=== PATIENT | male | born 1935 | race Caucasian/White ===

== ENCOUNTER → 2018-01-04 05:00 | Outpatient (REF) | payer MEDICARE, OTHER, MEDICAID, SELFPAY ==
[2018-01-04 08:07] LABS: Anion Gap 5 (5-15); BUN 18 mg/dL (7-18); BUN/Creat Ratio 22.1 RATIO (10-20); Calcium,Total 8.5 mg/dL (8.5-10.1); Chloride 104 mmol/L (98-107); Creatinine, Serum 0.81 mg/dL (0.70-1.30); EST Glomerular Filtration Rate 97 mL/min (>60); Est Glom Filt Rate - Afr Amer 117 mL/min (>60); Glucose 92 mg/dL (74-106); Potassium 3.9 mmol/L (3.5-5.1); Sodium Level 140 mmol/L (136-145)
[2018-01-04 08:26] LABS: Hemoglobin A1c 6.8 % (4.2-6.3)
== END ==
LOC: OLS.WHLCAR 05:00
PROVIDERS: Visit Provider Family Medicine
DX: E11.9 Type 2 diabetes mellitus without complications (principal); I10 Essential (primary) hypertension; E78.5 Hyperlipidemia, unspecified
CPT/HCPCS: 36415; 80048; 83036

== ENCOUNTER → 2018-04-11 13:00 | Outpatient (REF) | payer MEDICARE, OTHER, MEDICAID, SELFPAY | LOC: OLS.WHLCAR 13:00 | PROVIDERS: Visit Provider Family Medicine | DX: J18.9 Pneumonia, unspecified organism (principal) | CPT/HCPCS: 87449 ==

== ENCOUNTER → 2018-10-26 05:00 | Outpatient (REF) | payer MEDICARE, OTHER, MEDICAID, SELFPAY ==
[2018-10-26 07:52] LABS: Hematocrit 35.7 % (40-54); Hemoglobin 11.9 g/dl (13.0-16.5); Mean Corp Hgb Conc 33.3 g/gl (32-36); Mean Corpuscular Hgb 31.5 pg (27.0-32.0); Mean Corpuscular Volume 94.4 fL (80-94); Mean Platelet Vol. 8.7 fl (6.2-12.0); Platelet Count 245 K/mm3 (150-450); RBC Distribution Width CV 15.2 % (11.6-14.6); RBC Distribution Width SD 50.3 fl (35.1-43.9); Red Blood Count 3.78 M/mm3 (4.6-6.2); White Blood Count 9.3 K/mm3 (4.4-11.0)
[2018-10-26 08:01] LABS: Scan Indicated on CBC? Y/N NO
[2018-10-26 08:02] LABS: Anion Gap 8 (5-15); BUN 21 mg/dL (7-18); BUN/Creat Ratio 29.6 RATIO (10-20); Calcium,Total 8.5 mg/dL (8.5-10.1); Chloride 95 mmol/L (98-107); Creatinine, Serum 0.71 mg/dL (0.70-1.30); EST Glomerular Filtration Rate 113 mL/min (>60); Est Glom Filt Rate - Afr Amer 137 mL/min (>60); Glucose 117 mg/dL (74-106); Potassium 3.6 mmol/L (3.5-5.1); Sodium Level 136 mmol/L (136-145)
== END ==
LOC: OLS.WHLCAR 05:00
PROVIDERS: Visit Provider Family Medicine
DX: I10 Essential (primary) hypertension (principal)
CPT/HCPCS: 36415; 80048; 85027

== ENCOUNTER → 2019-01-24 05:00 | Outpatient (REF) | payer MEDICARE, OTHER, MEDICAID, SELFPAY ==
[2019-01-24 07:50] LABS: Hematocrit 37.5 % (40-54); Hemoglobin 12.2 g/dl (13.0-16.5); Mean Corp Hgb Conc 32.5 g/gl (32-36); Mean Corpuscular Volume 95.2 fL (80-94); Mean Platelet Vol. 8.8 fl (6.2-12.0); Platelet Count 262 K/mm3 (150-450); RBC Distribution Width CV 14.1 % (11.6-14.6); RBC Distribution Width SD 48.6 fl (35.1-43.9); Red Blood Count 3.94 M/mm3 (4.6-6.2); White Blood Count 8.5 K/mm3 (4.4-11.0)
[2019-01-24 07:52] LABS: Scan Indicated on CBC? Y/N NO
[2019-01-24 08:14] LABS: Hemoglobin A1c 6.4 % (4.2-6.3)
[2019-01-24 08:17] LABS: Anion Gap 8 (5-15); BUN 11 mg/dL (7-18); BUN/Creat Ratio 16.8 RATIO (10-20); Calcium,Total 8.4 mg/dL (8.5-10.1); Chloride 97 mmol/L (98-107); Creatinine, Serum 0.66 mg/dL (0.70-1.30); EST Glomerular Filtration Rate 124 mL/min (>60); Est Glom Filt Rate - Afr Amer 150 mL/min (>60); Glucose 124 mg/dL (74-106); Potassium 2.6 mmol/L (3.5-5.1); Sodium Level 142 mmol/L (136-145)
== END ==
LOC: OLS.WHLCAR 05:00
PROVIDERS: Visit Provider Family Medicine
DX: E11.9 Type 2 diabetes mellitus without complications (principal); I10 Essential (primary) hypertension; E78.5 Hyperlipidemia, unspecified
CPT/HCPCS: 36415; 80048; 83036; 85027

== ENCOUNTER → 2019-01-31 05:00 | Outpatient (REF) | payer MEDICARE, OTHER, MEDICAID, SELFPAY ==
[2019-01-31 08:36] LABS: Anion Gap 7 (5-15); Chloride 100 mmol/L (98-107); Potassium 5.1 mmol/L (3.5-5.1); Sodium Level 139 mmol/L (136-145)
== END ==
LOC: OLS.WHLCAR 05:00
PROVIDERS: Visit Provider Family Medicine
DX: I10 Essential (primary) hypertension (principal); E78.5 Hyperlipidemia, unspecified
CPT/HCPCS: 36415; 80051

== ENCOUNTER → 2019-03-12 06:30 | Outpatient (REF) | payer MEDICARE, OTHER, MEDICAID, SELFPAY | LOC: OLS.WHLCAR 06:30 | PROVIDERS: Visit Provider Family Medicine | DX: R19.7 Diarrhea, unspecified (principal) | CPT/HCPCS: 87493 ==

== ENCOUNTER → 2019-06-12 07:00 | Outpatient (REF) | payer MEDICARE, OTHER, MEDICAID, SELFPAY ==
[2019-06-12 09:05] LABS: Anion Gap 9 (5-15); BUN 16 mg/dL (7-18); BUN/Creat Ratio 23.1 RATIO (10-20); Calcium,Total 8.4 mg/dL (8.5-10.1); Chloride 97 mmol/L (98-107); Creatinine, Serum 0.69 mg/dL (0.70-1.30); EST Glomerular Filtration Rate 116 mL/min (>60); Est Glom Filt Rate - Afr Amer 141 mL/min (>60); Glucose 117 mg/dL (74-106); Potassium 2.8 mmol/L (3.5-5.1); Sodium Level 139 mmol/L (136-145)
== END ==
LOC: OLS.WHLCAR 07:00
PROVIDERS: Visit Provider Family Medicine
DX: I69.954 Hemiplegia and hemiparesis following unspecified cerebrovascular disease affecting left non-dominant side (principal); I67.9 Cerebrovascular disease, unspecified; R53.81 Other malaise; E11.9 Type 2 diabetes mellitus without complications; J06.9 Acute upper respiratory infection, unspecified
CPT/HCPCS: 36415; 80048

== ENCOUNTER → 2019-07-05 05:00 | Outpatient (REF) | payer MEDICARE, OTHER, MEDICAID, SELFPAY ==
[2019-06-22 09:57] VITALS: BMI 29.7
[2019-07-05 06:11] LABS: Hematocrit 41.4 % (40-54); Hemoglobin 12.8 g/dL (13.0-16.5); Mean Corp Hgb Conc 30.9 g/dL (32-36); Mean Corpuscular Volume 97.2 fL (80-94); Mean Platelet Vol. 9.2 fl (6.2-12.0); POSITIVE COUNT YES; POSITIVE MORPHOLOGY YES; Platelet Count 201 K/mm3 (150-450); RBC Distribution Width CV 16.6 % (11.6-14.6); RBC Distribution Width SD 59.4 fl (35.1-43.9); Red Blood Count 4.26 M/mm3 (4.6-6.2); White Blood Count 12.8 K/mm3 (4.4-11.0)
[2019-07-05 06:21] LABS: Differential Indicated MANUAL DIFF
[2019-07-05 06:34] LABS: Anion Gap 8 (5-15); BUN 26 mg/dL (7-18); BUN/Creat Ratio 30.7 RATIO (10-20); Calcium,Total 8.5 mg/dL (8.5-10.1); Chloride 104 mmol/L (98-107); Cholesterol 156 mg/dL (200); Creatinine, Serum 0.85 mg/dL (0.70-1.30); EST Glomerular Filtration Rate 92 mL/min (>60); Est Glom Filt Rate - Afr Amer 111 mL/min (>60); Glucose 159 mg/dL (74-106); High Density Lipoprotein 52 mg/dL; Potassium 3.9 mmol/L (3.5-5.1); Sodium Level 144 mmol/L (136-145); Triglycerides 211 mg/dL; Very Low Density Lipoprotein 42 mg/dL (5-40)
[2019-07-05 07:02] LABS: Lymphocyte 15 % (19-41); Metamyelocyte 1 % (0-1); Monocyte 3 % (0-10); Neutrophil-Band 1 % (0-5); Neutrophil-Segmented 80 % (47-70); Platelet Estimate ADEQUATE (ADEQ); Red Cell Morphology NORM C+C NORMAL (NORM C&C); Total Cells Counted 100 (MANUAL DIFF)
[2019-07-05 07:03] LABS: Absolute Lymphocyte Count 1.92 X10^3/uL (0.83-4.51); Absolute Neutrophil Count 10.4 X10^3/uL (2.0-7.7); Lymphocyte # 1.92 X10^3/ul (4.0); Neutrophil # 10.36 X10^3/uL (2.7-7.7)
[2019-07-05 08:45] LABS: Hemoglobin A1c 6.9 % (4.2-6.3)
[2019-07-05 14:56] LABS: Pathologist Review Reviewed
== END ==
LOC: OLS.WHLCAR 05:00
PROVIDERS: Visit Provider Family Medicine
DX: I69.954 Hemiplegia and hemiparesis following unspecified cerebrovascular disease affecting left non-dominant side (principal); I67.9 Cerebrovascular disease, unspecified; R53.81 Other malaise; E11.9 Type 2 diabetes mellitus without complications; I10 Essential (primary) hypertension; E87.5 Hyperkalemia
CPT/HCPCS: 36415; 80048; 80061; 83036; 85025

== ENCOUNTER → 2019-07-10 08:42 | Outpatient (CLI) | payer MEDICARE, OTHER, MEDICAID, SELFPAY ==
[2019-06-22 09:57] VITALS: BMI 29.7
--- NOTE | 2019-07-10 08:43 | ECHOCS_ITS ---
Reason For Study: Dyspnea/SOB Procedure This was a 2D Doppler, Color Flow transthoracic echocardiogram. Technically difficult study, echo was done with patient sitting upright in wheelchair due to patients condition. Contrast injection was performed. Difficult apical images due to scanning conditions. Exam performed in department. Left Ventricle Normal LV size. The estimated ejection fraction is 60 %. Stage 1 diastolic dysfunction. No regional wall motion abnormalities noted. Right Ventricle Normal RV size. Normal systolic function. Atria Normal left atrium. Normal right atrium. Mitral Valve Normal mitral valve. Tricuspid Valve Normal tricuspid valve. Mild tricuspid valve insufficiency. Aortic Valve Trisinus/trileaflet aortic valve. Mild focal aortic valve calcification. Pulmonic Valve Normal pulmonic valve. Great Vessels Normal aortic root. The pulmonary artery is normal size. Normal inferior vena cava. Pericardium/Pleural No pericardial effusion. Medication 22 gauge I.V. with prn adaptor inserted into right arm. Diluted definity 3ml given slow IV push to enhance endocardial definition. MMode/2D Measurements & Calculations LVIDd: 3.8 cm IVSd: 1.3 cm LVIDs: 2.7 cm LVPWd: 1.0 cm FS: 28.5 % Time Measurements MV dec time: 0.21 sec Doppler Measurements & Calculations MV E max phillip: 47.3 cm/sec Lat Peak E' Phillip: 5.6 cm/sec Med Peak E' Phillip: 3.7 cm/sec MV A max phillip: 77.1 cm/sec E/E' lat: 8.5 E/E' med: 12.6 MV E/A: 0.61 MV V2 max: 99.2 cm/sec MV P1/2t max phillip: 77.0 cm/sec PA V2 max: 104.0 cm/sec MV max P.9 mmHg MV P1/2t: 72.0 msec MV V2 mean: 53.3 cm/sec MV mean P.3 mmHg MV dec slope: 313.5 cm/sec2 MV V2 VTI: 23.7 cm MVA(P1/2t): 3.1 cm2 TR max phillip: 208.4 cm/sec TR max P.4 mmHg Interpretation Summary Normal LV size. The estimated ejection fraction is 60 %. Stage 1 diastolic dysfunction. Mild tricuspid valve insufficiency. Contrast injection was performed. Ordering Physician: Ayan Cooley Referring Physician: JOANNE Nicholson M.D. Performed By: Murphy Edwards RCS
== END ==
PROVIDERS: Family Provider Family Medicine; PCP Family Medicine; Referring Provider Internal Medicine Cardiovascular Disease; Visit Provider Internal Medicine Cardiovascular Disease
DX: R06.02 Shortness of breath (principal); R60.9 Edema, unspecified
CPT/HCPCS: 93306; Q9957; A4216; C8929

== ENCOUNTER → 2019-09-01 05:00 | Outpatient (REF) | payer MEDICARE, OTHER, MEDICAID, SELFPAY ==
[2019-06-22 09:57] VITALS: BMI 29.7
[2019-09-01 08:30] LABS: Hematocrit 35.6 % (40-54); Hemoglobin 11.1 g/dL (13.0-16.5); Mean Corp Hgb Conc 31.2 g/dL (32-36); Mean Corpuscular Hgb 32.6 pg (27.0-32.0); Mean Corpuscular Volume 104.7 fL (80-94); Mean Platelet Vol. 10.2 fl (6.2-12.0); POSITIVE MORPHOLOGY YES; Platelet Count 205 K/mm3 (150-450); RBC Distribution Width CV 18.1 % (11.6-14.6); RBC Distribution Width SD 69.1 fl (35.1-43.9); White Blood Count 8.3 K/mm3 (4.4-11.0)
[2019-09-01 09:05] LABS: Scan Indicated on CBC? Y/N YES- FLAGS NOTED
[2019-09-01 10:08] LABS: ALB/GLOB Ratio 0.8 RATIO (0.9-2.4); AST(SGOT) 45 U/L (15-37); Alanine Aminotransfer ALT/SGPT 70 U/L (16-61); Albumin, Serum 2.8 g/dL (3.2-5.0); Alkaline Phosphatase 73 U/L (45-117); Anion Gap 11 (5-15); BUN 31 mg/dL (7-18); BUN/Creat Ratio 32.8 RATIO (10-20); Calcium,Total 8.7 mg/dL (8.5-10.1); Chloride 110 mmol/L (98-107); Creatinine, Serum 0.94 mg/dL (0.70-1.30); EST Glomerular Filtration Rate 81 mL/min (>60); Est Glom Filt Rate - Afr Amer 98 mL/min (>60); Globulin 3.6 g/dL (2.2-4.2); Glucose 198 mg/dL (74-106); Potassium 3.5 mmol/L (3.5-5.1); Protein, Total 6.4 g/dL (6.4-8.2); Sodium Level 150 mmol/L (136-145); Thyroid Stim Hormone (TSH) 0.72 uIU/mL (0.358-3.74)
== END ==
LOC: OLS.WHLCAR 05:00
PROVIDERS: Visit Provider Family Medicine
DX: E11.9 Type 2 diabetes mellitus without complications (principal)
CPT/HCPCS: 36415; 80053; 84443; 85027